=== PATIENT | female | born 2000 | race Caucasian/White ===

== ENCOUNTER 2019-02-14 04:50 | Day surgery (SDC) | payer OTHER | END 2019-02-14 17:10 | disposition home or self-care (01) | LOC: CIR.AMB 04:50 | DX: L05.91 Pilonidal cyst without abscess (principal) ==

== ENCOUNTER 2020-10-28 09:23 | Outpatient (CLI) | payer OTHER | END 2020-10-28 09:27 | disposition home or self-care (01) | LOC: NUCLEAR 09:23 | PROVIDERS: ATTEND Internal Medicine Hematology & Oncology | DX: R59.0 Localized enlarged lymph nodes (principal) | CPT/HCPCS: 78815; A9552 ==